=== PATIENT | female | born 1950 | race Caucasian/White ===

== ENCOUNTER 2020-10-31 05:21 | Inpatient (IN) ==
[2020-10-31] MEDS ORDERED: Isovue-370 500 ML BOTTLE IVP ONE (05:50)
[2020-10-31] MEDS ORDERED: 0.9 % Sodium Chloride 1,000 ML IVC ONE (05:57)
[2020-10-31 06:25] LABS: Basophils % 0.5 %; Eosinophils # 0.2 K/mcL (0.0-0.6); Eosinophils % 3.2 %; Hematocrit 45.5 % (35.3-44.9); Hemoglobin 14.8 g/dL (11.5-15.4); Immature Granulocytes % 0.2 % (0-4); Lymphocytes # 1.5 K/mcL (0.6-4.6); Lymphocytes % 22.1 %; Mean Corpuscular HGB Conc 32.5 g/dL (31.6-35.5); Mean Corpuscular Hemoglobin 27.6 pg (28.0-33.3); Mean Corpuscular Volume 84.9 fL (83.0-100.0); Mean Platelet Volume 9.2 fL (9.4-12.4); Monocytes # 0.6 K/mcL (0.0-1.3); Monocytes % 8.4 %; Neutrophils # 4.3 K/mcL (1.6-8.9); Platelet Count 309 K/mcL (140-400); Red Blood Count 5.36 M/mcL (3.82-4.97); Red Cell Distribution Width 12.7 % (11.5-14.5); Segmented Neutrophils % 65.6 %; White Blood Count 6.6 K/mcL (4.3-11.1)
[2020-10-31 06:42] LABS: Alanine Aminotransferase 20 Units/L (7-52); Albumin 4.1 g/dL (3.5-5.7); Albumin/Globulin Ratio 1.4 (1.1-2.2); Alkaline Phosphatase 60 Units/L (34-104); Aspartate Amino Transferase 16 Units/L (13-39); BUN/Creatinine Ratio 12 (6-26); Bilirubin,Total 0.8 mg/dL (0.3-1.0); Blood Urea Nitrogen 40 mg/dL (8-23); Calcium 9.2 mg/dL (8.6-10.3); Carbon Dioxide 22 mEq/L (23-29); Chloride 101 mEq/L (98-107); Glucose 126 mg/dL (70-105); Lipase 32 Units/L (11-82); Osmolality,Calculated 289 (280-300); Potassium 3.3 mEq/L (3.5-5.1); Sodium 134 mEq/L (136-145); Total Protein 7.1 g/dL (6.4-8.9); Troponin I < 0.03 ng/mL (< 0.04); eGFR For African Americans 16 (> 60); eGFR For Non-African Americans 13 (> 60)
[2020-10-31] MEDS ORDERED: Naloxone 0.4 MG/ML INJ IVP PRN (07:40)
[2020-10-31] MEDS ORDERED: Ondansetron 4 MG/2 ML VIAL IVP PRN (07:40)
[2020-10-31] MEDS ORDERED: *HR* Dextrose 50 % in Water (Vial) 50 ML VIAL IVP PRN (08:43)
[2020-10-31] MEDS ORDERED: Dextrose Gel 15 GM/37.5 ML TUBE PO PRN ×2 (08:43)
[2020-10-31] MEDS ORDERED: D5% in Water 1,000 ML IVC PRN (08:43)
[2020-10-31] MEDS: 0.9 % Sodium Chloride 1,000 ML IVC SCH ×2 (09:14→21:06)
[2020-10-31] MEDS: Insulin LISPRO 300 UNITS/3 ML VIAL SQ SCH ×2 (11:25→16:14)
[2020-10-31] MEDS: *HR* Heparin 5,000 UNIT/ML VIAL SQ SCH ×2 (15:28→21:05)
[2020-11-01] MEDS: Insulin LISPRO 300 UNITS/3 ML VIAL SQ SCH ×5 (05:35→21:51)
[2020-11-01 05:47] LABS: Basophils % 0.6 %; Eosinophils # 0.2 K/mcL (0.0-0.6); Hematocrit 40.8 % (35.3-44.9); Immature Granulocytes % 0.2 % (0-4); Lymphocytes # 1.9 K/mcL (0.6-4.6); Lymphocytes % 36.6 %; Mean Corpuscular HGB Conc 32.1 g/dL (31.6-35.5); Mean Corpuscular Hemoglobin 27.6 pg (28.0-33.3); Mean Corpuscular Volume 85.9 fL (83.0-100.0); Mean Platelet Volume 9.3 fL (9.4-12.4); Monocytes # 0.5 K/mcL (0.0-1.3); Monocytes % 8.9 %; Neutrophils # 2.7 K/mcL (1.6-8.9); Platelet Count 258 K/mcL (140-400); Red Blood Count 4.75 M/mcL (3.82-4.97); Red Cell Distribution Width 12.8 % (11.5-14.5); Segmented Neutrophils % 50.7 %; White Blood Count 5.3 K/mcL (4.3-11.1)
[2020-11-01] MEDS: *HR* Heparin 5,000 UNIT/ML VIAL SQ SCH ×3 (05:47→21:53)
[2020-11-01 05:50] LABS: Hemoglobin 13.1 g/dL (11.5-15.4)
[2020-11-01 05:59] LABS: Calcium 8.7 mg/dL (8.6-10.3); Potassium 3.7 mEq/L (3.5-5.1)
[2020-11-01 06:03] LABS: Platelet Estimate Normal (Normal); Reactive Lymphocytes Present (Not Present)
[2020-11-01 08:21] LABS: Magnesium 1.6 mg/dL (1.6-2.6); Phosphorous 2.9 mg/dL (2.7-4.5)
[2020-11-02] MEDS: *HR* Heparin 5,000 UNIT/ML VIAL SQ SCH (06:19)
[2020-11-02 07:16] LABS: Hematocrit 38.3 % (35.3-44.9); Hemoglobin 12.6 g/dL (11.5-15.4); Mean Corpuscular HGB Conc 32.9 g/dL (31.6-35.5); Mean Corpuscular Hemoglobin 28.3 pg (28.0-33.3); Mean Corpuscular Volume 86.1 fL (83.0-100.0); Mean Platelet Volume 9.6 fL (9.4-12.4); Platelet Count 235 K/mcL (140-400); Red Blood Count 4.45 M/mcL (3.82-4.97); Red Cell Distribution Width 12.8 % (11.5-14.5); White Blood Count 6.2 K/mcL (4.3-11.1)
[2020-11-02 07:35] VITALS: BP 164/84
[2020-11-02] MEDS: Insulin LISPRO 300 UNITS/3 ML VIAL SQ SCH (07:35)
[2020-11-02 07:50] LABS: Alanine Aminotransferase 18 Units/L (7-52); Albumin 3.6 g/dL (3.5-5.7); Albumin/Globulin Ratio 1.5 (1.1-2.2); Alkaline Phosphatase 56 Units/L (34-104); Aspartate Amino Transferase 18 Units/L (13-39); BUN/Creatinine Ratio 22 (6-26); Bilirubin,Total 0.5 mg/dL (0.3-1.0); Blood Urea Nitrogen 21 mg/dL (8-23); Calcium 9.1 mg/dL (8.6-10.3); Carbon Dioxide 22 mEq/L (23-29); Chloride 110 mEq/L (98-107); Globulin 2.4 g/dL (2.4-3.5); Glucose 112 mg/dL (70-105); Magnesium 1.6 mg/dL (1.6-2.6); Osmolality,Calculated 294 (280-300); Phosphorous 2.7 mg/dL (2.7-4.5); Potassium 3.8 mEq/L (3.5-5.1); Sodium 140 mEq/L (136-145); eGFR For African Americans > 60 (> 60); eGFR For Non-African Americans 57 (> 60)
[2020-11-02] MEDS ORDERED: Lactobacillus 1 EACH CAP.SPRINK PO SCH (09:00)
[2020-11-02] MEDS ORDERED: amLODIPine 5 MG TABLET PO SCH (09:00)
[2020-11-02] MEDS ORDERED: metroNIDAZOLE 500 MG TABLET PO SCH (09:00)
== END 2020-11-02 14:34 | disposition home or self-care (01) | DRG 683 ==
LOC: 2ANU 05:21 → EMEROOARM 05:21 → SUATTDRO 07:52 → 2ANU 08:20
PROVIDERS: ADMIT Internal Medicine; ATTEND Internal Medicine

== ENCOUNTER 2021-10-24 15:23 | Inpatient (IN) ==
[2021-10-24] MEDS ORDERED: Isovue-370 500 ML BOTTLE IVP ONE (15:37)
[2021-10-24 15:50] LABS: Basophils % 0.1 %; Hemoglobin 13.9 g/dL (11.5-15.4); Immature Granulocytes % 0.9 % (0-4); Lymphocytes # 0.3 K/mcL (0.6-4.6); Lymphocytes % 4.1 %; Mean Corpuscular HGB Conc 33.1 g/dL (31.6-35.5); Mean Corpuscular Hemoglobin 27.8 pg (28.0-33.3); Mean Platelet Volume 9.2 fL (9.4-12.4); Monocytes # 0.2 K/mcL (0.0-1.3); Monocytes % 2.9 %; Neutrophils # 6.9 K/mcL (1.6-8.9); Platelet Count 238 K/mcL (140-400); Red Cell Distribution Width 12.6 % (11.5-14.5); White Blood Count 7.5 K/mcL (4.3-11.1)
[2021-10-24 16:02] LABS: ABG Base Excess -1 mEq/L (-2 to 3); ABG HCO3 23 mEq/L (21-27); ABG Oxygen Saturation 92 % (95-98); ABG PCO2 32 mmHg (35-45); ABG PH 7.45 pH Units (7.32-7.45); ABG PO2 61 mmHg (85-104); ABG TCO2 24 mEq/L (20-26)
[2021-10-24 16:06] LABS: INR 1.1; Prothrombin Time 12.2 Seconds (9.4-12.1)
[2021-10-24 16:08] LABS: Activated Partial Thrombo Time 27.7 Seconds (26.0-36.0)
[2021-10-24 16:10] LABS: Troponin I 0.04 ng/mL (< 0.04)
[2021-10-24 16:24] LABS: Alanine Aminotransferase 28 Units/L (7-52); Albumin 3.7 g/dL (3.5-5.7); Alkaline Phosphatase 48 Units/L (34-104); Aspartate Amino Transferase 37 Units/L (13-39); BUN/Creatinine Ratio 18 (6-26); Bilirubin,Direct 0.3 mg/dL (0.0-0.2); Bilirubin,Indirect 0.8 mg/dL (0.0-1.0); Bilirubin,Total 1.1 mg/dL (0.3-1.0); Blood Urea Nitrogen 17 mg/dL (8-23); Calcium 8.9 mg/dL (8.6-10.3); Carbon Dioxide 22 mEq/L (23-29); Chloride 93 mEq/L (98-107); Globulin 3.8 g/dL (2.4-3.5); Glucose 346 mg/dL (70-105); Osmolality,Calculated 281 (280-300); Potassium 4.1 mEq/L (3.5-5.1); Sodium 128 mEq/L (136-145); Total Protein 7.5 g/dL (6.4-8.9); eGFR For African Americans > 60 (> 60); eGFR For Non-African Americans > 60 (> 60)
[2021-10-24 17:25] LABS: Bilirubin,Urine Negative (Negative); Blood,Urine Moderate (Negative); Clarity,Urine Clear (Clear); Color,Urine Light-Yellow (Yellow); Glucose,Urine (UA) >=1000 mg/dL (Normal); Ketones,Urine 40 mg/dL (Negative); Leukocyte Esterase,Urine Negative (Negative); Mucus,Urine Few per lpf (None-Few); Nitrite,Urine Negative (Negative); Protein,Urine 50 mg/dL (Neg-Trace); RBC,Urine 0-3 per hpf (0-3); Specific Gravity,Urine 1.022 (1.010-1.025); Squamous Epithelial Cell,Urine Few per hpf (None-Few); Urobilinogen,Urine Normal (Normal); WBC,Urine 0-3 per hpf (0-3)
[2021-10-24] MEDS ORDERED: Naloxone 0.4 MG/ML INJ IVP PRN (19:51)
[2021-10-24] MEDS ORDERED: Ondansetron 4 MG/2 ML VIAL IVP PRN (19:51)
[2021-10-24] MEDS ORDERED: Ipratropium 1 PUFF INHALER IH PRN (20:17)
[2021-10-24] MEDS ORDERED: Dextrose Gel 15 GM/37.5 ML TUBE PO PRN ×2 (20:53)
[2021-10-24] MEDS ORDERED: D5% in Water 1,000 ML IVC PRN (20:53)
[2021-10-24] MEDS ORDERED: *HR* Dextrose 50 % in Water (Syg) 50 ML SYRINGE IVP PRN (20:53)
[2021-10-24 21:59] LABS: Adenovirus Not Detected (Not Detect); Coronavirus 229E Not Detected (Not Detect); Coronavirus HKU1 Not Detected (Not Detect); Coronavirus NL63 Not Detected (Not Detect); Coronavirus OC43 Not Detected (Not Detect)
[2021-10-24] MEDS ORDERED: Remdesivir 200 MG in 0.9 % Sodium Chloride 100 ML IVPB ONE (22:00)
[2021-10-24 22:01] LABS: Bordetella Pertussis Not Detected (Not Detect); Chlamydophila pneumoniae Not Detected (Not Detect); Human Metapneumovirus Not Detected (Not Detect); Human Rhinovirus/Enterovirus Not Detected (Not Detect); Influenza A Subtype 2009 H1 Not Detected (Not Detect); Influenza B Not Detected (Not Detect); Mycoplasma pneumoniae Not Detected (Not Detect); Parainfluenza Virus 1 Not Detected (Not Detect); Parainfluenza Virus 2 Not Detected (Not Detect); Parainfluenza Virus 3 Not Detected (Not Detect); Parainfluenza Virus 4 Not Detected (Not Detect); Respiratory Syncytial Virus Not Detected (Not Detect); SARS-CoV-2 DETECTED (Not Detect)
[2021-10-24 22:19] LABS: ABG Base Excess 1 mEq/L (-2 to 3); ABG HCO3 23 mEq/L (21-27); ABG Oxygen Saturation 92 % (95-98); ABG PCO2 30 mmHg (35-45); ABG PH 7.49 pH Units (7.32-7.45); ABG PO2 57 mmHg (85-104); ABG TCO2 24 mEq/L (20-26); Blood Gas Modality CPAP/PS; Blood Gas Pressure Support 16 cm H2O
[2021-10-24] MEDS: Melatonin 3 MG TABLET PO PRN (22:54)
[2021-10-24] MEDS: Insulin DETEMIR 100 UNIT/ML X5UNITS SUBQ SCH (23:17)
[2021-10-25] MEDS ORDERED: *HR* Labetalol 20 MG/4 ML SYRINGE IVP ONE (01:28)
[2021-10-25] MEDS: Insulin LISPRO 300 UNITS/3 ML VIAL SUBQ SCH ×6 (01:36→19:39)
[2021-10-25 02:58] LABS: Hemoglobin 13.4 g/dL (11.5-15.4); Mean Corpuscular HGB Conc 33.5 g/dL (31.6-35.5); Mean Corpuscular Hemoglobin 27.7 pg (28.0-33.3); Mean Corpuscular Volume 82.6 fL (83.0-100.0); Mean Platelet Volume 9.7 fL (9.4-12.4); Platelet Count 224 K/mcL (140-400); Red Blood Count 4.84 M/mcL (3.82-4.97); Red Cell Distribution Width 12.5 % (11.5-14.5); White Blood Count 8.7 K/mcL (4.3-11.1)
[2021-10-25 03:15] LABS: Albumin 3.4 g/dL (3.5-5.7); Albumin/Globulin Ratio 0.9 (1.1-2.2); Bilirubin,Direct 0.3 mg/dL (0.0-0.2); Bilirubin,Indirect 0.6 mg/dL (0.0-1.0); Bilirubin,Total 0.9 mg/dL (0.3-1.0); Globulin 3.6 g/dL (2.4-3.5)
[2021-10-25 03:18] LABS: BUN/Creatinine Ratio 25 (6-26); Blood Urea Nitrogen 17 mg/dL (8-23); C-Reactive Protein 170 mg/L (Less than 10); Carbon Dioxide 24 mEq/L (23-29); Chloride 96 mEq/L (98-107); Glucose 272 mg/dL (70-105); Lactate Dehydrogenase 460 Units/L (140-271); Osmolality,Calculated 283 (280-300); Potassium 4.1 mEq/L (3.5-5.1); Sodium 131 mEq/L (136-145); eGFR For African Americans > 60 (> 60); eGFR For Non-African Americans > 60 (> 60)
[2021-10-25 03:41] LABS: Ferritin > 1500 ng/mL (10-120)
[2021-10-25] MEDS ORDERED: *HR* Enoxaparin 40 MG/0.4 ML SYRINGE SQ SCH (06:00)
[2021-10-25] MEDS ORDERED: Insulin LISPRO 300 UNITS/3 ML VIAL SUBQ SCH (07:30)
[2021-10-25] MEDS: Benzonatate 100 MG CAPSULE PO PRN ×2 (11:54→21:41)
[2021-10-25] MEDS ORDERED: Tocilizumab 80 MG/4 ML MLS IVPB ONE (15:00)
[2021-10-25] MEDS: *HR* Enoxaparin 60 MG/0.6 ML SYRINGE SQ SCH (17:24)
[2021-10-25] MEDS: Insulin DETEMIR 100 UNIT/ML X5UNITS SUBQ SCH (19:40)
[2021-10-25] MEDS ORDERED: TOCILIZUMAB 800 MG in 0.9 % Sodium Chloride 100 ML IVPB ONE (20:00)
[2021-10-25] MEDS: Remdesivir 100 MG in 0.9 % Sodium Chloride 100 ML IVPB SCH (20:36)
[2021-10-25] MEDS: Melatonin 3 MG TABLET PO PRN (21:41)
[2021-10-26] MEDS: Insulin LISPRO 300 UNITS/3 ML VIAL SUBQ SCH ×6 (00:30→20:20)
[2021-10-26 04:50] LABS: Albumin 3.3 g/dL (3.5-5.7); Albumin/Globulin Ratio 0.9 (1.1-2.2); Bilirubin,Direct 0.3 mg/dL (0.0-0.2); Bilirubin,Indirect 0.6 mg/dL (0.0-1.0); Bilirubin,Total 0.9 mg/dL (0.3-1.0); Globulin 3.7 g/dL (2.4-3.5)
[2021-10-26] MEDS: *HR* Enoxaparin 60 MG/0.6 ML SYRINGE SQ SCH ×2 (05:47→17:28)
[2021-10-26] MEDS ORDERED: Acetaminophen 325 MG TABLET PO ONE (06:11)
[2021-10-26] MEDS ORDERED: Naloxone 0.4 MG/ML INJ IVP PRN (06:13)
[2021-10-26] MEDS: Remdesivir 100 MG in 0.9 % Sodium Chloride 100 ML IVPB SCH (20:07)
[2021-10-26] MEDS: Benzonatate 100 MG CAPSULE PO PRN (20:12)
[2021-10-26] MEDS ORDERED: Insulin DETEMIR 100 UNIT/ML X5UNITS SUBQ SCH (21:00)
[2021-10-26] MEDS: Melatonin 3 MG TABLET PO PRN (22:01)
[2021-10-26] MEDS: *HR* LORazepam 2 MG/ML VIAL IVP PRN (22:01)
[2021-10-27] MEDS: Insulin LISPRO 300 UNITS/3 ML VIAL SUBQ SCH ×6 (01:47→20:14)
[2021-10-27] MEDS: Dexmedetomidine HCl 400 MCG/100 ML MLS IVC SCH (03:23)
[2021-10-27 05:26] LABS: Albumin 3.1 g/dL (3.5-5.7); Albumin/Globulin Ratio 0.9 (1.1-2.2); Bilirubin,Direct 0.2 mg/dL (0.0-0.2); Bilirubin,Indirect 0.6 mg/dL (0.0-1.0); Bilirubin,Total 0.8 mg/dL (0.3-1.0); Globulin 3.5 g/dL (2.4-3.5); Total Protein 6.6 g/dL (6.4-8.9)
[2021-10-27 05:38] LABS: BUN/Creatinine Ratio 37 (6-26); Blood Urea Nitrogen 31 mg/dL (8-23); Carbon Dioxide 27 mEq/L (23-29); Chloride 95 mEq/L (98-107); Glucose 184 mg/dL (70-105); Osmolality,Calculated 281 (280-300); Potassium 4.9 mEq/L (3.5-5.1); Sodium 130 mEq/L (136-145); eGFR For African Americans > 60 (> 60); eGFR For Non-African Americans > 60 (> 60)
[2021-10-27] MEDS: *HR* Enoxaparin 60 MG/0.6 ML SYRINGE SQ SCH ×2 (05:42→17:27)
[2021-10-27 06:30] LABS: Basophils % 0.3 %; Hematocrit 41.5 % (35.3-44.9); Hemoglobin 13.8 g/dL (11.5-15.4); Immature Granulocytes % 0.8 % (0-4); Lymphocytes # 0.8 K/mcL (0.6-4.6); Lymphocytes % 9.1 %; Mean Corpuscular HGB Conc 33.3 g/dL (31.6-35.5); Mean Corpuscular Hemoglobin 27.5 pg (28.0-33.3); Mean Corpuscular Volume 82.8 fL (83.0-100.0); Mean Platelet Volume 8.7 fL (9.4-12.4); Monocytes # 0.6 K/mcL (0.0-1.3); Neutrophils # 7.4 K/mcL (1.6-8.9); Platelet Count 337 K/mcL (140-400); Red Blood Count 5.01 M/mcL (3.82-4.97); Red Cell Distribution Width 12.5 % (11.5-14.5); Segmented Neutrophils % 82.8 %; White Blood Count 8.9 K/mcL (4.3-11.1)
[2021-10-27] MEDS: Benzonatate 100 MG CAPSULE PO PRN (09:02)
[2021-10-27] MEDS: Acetaminophen 325 MG TABLET PO PRN (10:11)
[2021-10-27] MEDS: *HR* LORazepam 2 MG/ML VIAL IVP PRN (20:15)
[2021-10-27] MEDS: Insulin DETEMIR 100 UNIT/ML X5UNITS SUBQ SCH (20:15)
[2021-10-27] MEDS: Melatonin 3 MG TABLET PO PRN (20:16)
[2021-10-27] MEDS: Remdesivir 100 MG in 0.9 % Sodium Chloride 100 ML IVPB SCH (22:55)
[2021-10-28] MEDS: Insulin LISPRO 300 UNITS/3 ML VIAL SUBQ SCH ×6 (00:28→20:13)
[2021-10-28] MEDS: *HR* Enoxaparin 60 MG/0.6 ML SYRINGE SQ SCH ×2 (05:46→17:58)
[2021-10-28 06:02] LABS: Albumin 3.4 g/dL (3.5-5.7); Albumin/Globulin Ratio 1.1 (1.1-2.2); Bilirubin,Direct 0.2 mg/dL (0.0-0.2); Bilirubin,Indirect 0.6 mg/dL (0.0-1.0); Bilirubin,Total 0.8 mg/dL (0.3-1.0); Globulin 3.1 g/dL (2.4-3.5); Total Protein 6.5 g/dL (6.4-8.9)
[2021-10-28 06:04] LABS: BUN/Creatinine Ratio 38 (6-26); Blood Urea Nitrogen 33 mg/dL (8-23); Calcium 9.4 mg/dL (8.6-10.3); Carbon Dioxide 26 mEq/L (23-29); Chloride 96 mEq/L (98-107); Glucose 123 mg/dL (70-105); Osmolality,Calculated 281 (280-300); Potassium 4.8 mEq/L (3.5-5.1); Sodium 131 mEq/L (136-145); eGFR For African Americans > 60 (> 60); eGFR For Non-African Americans > 60 (> 60)
[2021-10-28 06:06] LABS: Basophils % 0.3 %; Hematocrit 43.9 % (35.3-44.9); Hemoglobin 14.6 g/dL (11.5-15.4); Immature Granulocytes % 0.6 % (0-4); Lymphocytes # 0.9 K/mcL (0.6-4.6); Lymphocytes % 7.8 %; Mean Corpuscular HGB Conc 33.3 g/dL (31.6-35.5); Mean Corpuscular Hemoglobin 27.8 pg (28.0-33.3); Mean Corpuscular Volume 83.5 fL (83.0-100.0); Mean Platelet Volume 8.9 fL (9.4-12.4); Monocytes # 0.6 K/mcL (0.0-1.3); Monocytes % 5.4 %; Neutrophils # 9.6 K/mcL (1.6-8.9); Platelet Count 429 K/mcL (140-400); Red Blood Count 5.26 M/mcL (3.82-4.97); Red Cell Distribution Width 12.4 % (11.5-14.5); Segmented Neutrophils % 85.9 %; White Blood Count 11.2 K/mcL (4.3-11.1)
[2021-10-28 06:43] LABS: Platelet Estimate Normal (Normal)
[2021-10-28] MEDS: Dexmedetomidine HCl 400 MCG/100 ML MLS IVC SCH ×2 (07:31→15:11)
[2021-10-28] MEDS: Benzonatate 100 MG CAPSULE PO PRN ×2 (09:34→18:00)
[2021-10-28] MEDS: Acetaminophen 325 MG TABLET PO PRN (12:36)
[2021-10-28] MEDS ORDERED: *HR* OxyCODONE/APAP 5/325 TABLET PO PRN (16:24)
[2021-10-28] MEDS: Piperacillin/Tazobactam 3.375 GM in 0.9 % Sodium Chloride Mini Bag 100 ML IVPB SCH (16:59)
[2021-10-28] MEDS: Insulin DETEMIR 100 UNIT/ML X5UNITS SUBQ SCH (20:13)
[2021-10-28] MEDS: *HR* LORazepam 2 MG/ML VIAL IVP PRN (22:53)
[2021-10-28] MEDS: Melatonin 3 MG TABLET PO PRN (22:53)
[2021-10-28] MEDS: Remdesivir 100 MG in 0.9 % Sodium Chloride 100 ML IVPB SCH (22:53)
[2021-10-29] MEDS: Insulin LISPRO 300 UNITS/3 ML VIAL SUBQ SCH ×6 (00:20→21:20)
[2021-10-29] MEDS: Piperacillin/Tazobactam 3.375 GM in 0.9 % Sodium Chloride Mini Bag 100 ML IVPB SCH ×3 (00:20→17:10)
[2021-10-29] MEDS: *HR* Enoxaparin 60 MG/0.6 ML SYRINGE SQ SCH ×2 (06:15→17:12)
[2021-10-29 06:58] LABS: Albumin 3.3 g/dL (3.5-5.7); Albumin/Globulin Ratio 1.1 (1.1-2.2); Bilirubin,Direct 0.2 mg/dL (0.0-0.2); Bilirubin,Indirect 0.6 mg/dL (0.0-1.0); Bilirubin,Total 0.8 mg/dL (0.3-1.0); Total Protein 6.3 g/dL (6.4-8.9)
[2021-10-29 06:59] LABS: BUN/Creatinine Ratio 34 (6-26); Blood Urea Nitrogen 29 mg/dL (8-23); Carbon Dioxide 25 mEq/L (23-29); Chloride 100 mEq/L (98-107); Glucose 116 mg/dL (70-105); Osmolality,Calculated 283 (280-300); Potassium 4.6 mEq/L (3.5-5.1); Sodium 133 mEq/L (136-145); eGFR For African Americans > 60 (> 60); eGFR For Non-African Americans > 60 (> 60)
[2021-10-29 07:11] LABS: Phosphorous 4.6 mg/dL (2.7-4.5)
[2021-10-29 07:18] LABS: Basophils % 0.2 %; Eosinophils # 0.1 K/mcL (0.0-0.6); Eosinophils % 0.4 %; Hematocrit 45.4 % (35.3-44.9); Hemoglobin 15.1 g/dL (11.5-15.4); Immature Granulocytes % 0.4 % (0-4); Lymphocytes # 0.7 K/mcL (0.6-4.6); Lymphocytes % 6.4 %; Mean Corpuscular HGB Conc 33.3 g/dL (31.6-35.5); Mean Corpuscular Hemoglobin 27.7 pg (28.0-33.3); Mean Corpuscular Volume 83.2 fL (83.0-100.0); Mean Platelet Volume 8.7 fL (9.4-12.4); Monocytes # 0.3 K/mcL (0.0-1.3); Monocytes % 2.5 %; Neutrophils # 10.3 K/mcL (1.6-8.9); Platelet Count 388 K/mcL (140-400); Red Blood Count 5.46 M/mcL (3.82-4.97); Red Cell Distribution Width 12.5 % (11.5-14.5); Segmented Neutrophils % 90.1 %; White Blood Count 11.5 K/mcL (4.3-11.1)
[2021-10-29 07:26] LABS: INR 1.1; Prothrombin Time 12.6 Seconds (9.4-12.1)
[2021-10-29] MEDS: Dexmedetomidine HCl 400 MCG/100 ML MLS IVC SCH ×3 (08:44→17:55)
[2021-10-29] MEDS ORDERED: Lidocaine -MPF 1% 5 ML AMPUL INFILT ONE (09:51)
[2021-10-29] MEDS ORDERED: *HR* FentaNYL (PF) 100 MCG/2 ML VIAL IVP ONE (10:55)
[2021-10-29] MEDS ORDERED: *HR* FentaNYL (PF) 100 MCG/2 ML VIAL ONE (10:56)
[2021-10-29] MEDS ORDERED: Norepinephrine 4 MG/254 ML IV.SOLN IVC ONE (10:57)
[2021-10-29] MEDS ORDERED: FentaNYL (PF) 1,000 MCG/100 ML IV.SOLN ONE (10:57)
[2021-10-29] MEDS: Cisatracurium 200 MG in 0.9 % Sodium Chloride 180 ML IVC SCH ×2 (11:41→22:14)
[2021-10-29] MEDS: FentaNYL (PF) 1,000 MCG/100 ML IV.SOLN IVC SCH ×3 (11:41→21:23)
[2021-10-29] MEDS: Norepinephrine 4 MG/254 ML IV.SOLN IVC SCH ×2 (11:42→15:20)
[2021-10-29 12:10] LABS: ABG Base Excess -3 mEq/L (-2 to 3); ABG HCO3 27 mEq/L (21-27); ABG Oxygen Saturation 93 % (95-98); ABG PCO2 64 mmHg (35-45); ABG PH 7.23 pH Units (7.32-7.45); ABG PO2 81 mmHg (85-104); ABG TCO2 29 mEq/L (20-26); Blood Gas Modality VC; Blood Gas VT 400 cc
[2021-10-29 14:18] LABS: ABG Base Excess -4 mEq/L (-2 to 3); ABG HCO3 26 mEq/L (21-27); ABG Oxygen Saturation 86 % (95-98); ABG PCO2 72 mmHg (35-45); ABG PH 7.17 pH Units (7.32-7.45); ABG PO2 66 mmHg (85-104); ABG TCO2 29 mEq/L (20-26); Blood Gas Modality ASSIST CONTROL; Blood Gas VT 400 cc
[2021-10-29] MEDS ORDERED: 0.9 % Sodium Chloride 1,000 ML ONE (16:16)
[2021-10-29] MEDS ORDERED: Artificial Tears SOLN 15 ML BOTTLE BOTH EYES PRN (16:21)
[2021-10-29] MEDS: Pantoprazole 40 MG VIAL IVP SCH (17:15)
[2021-10-29] MEDS ORDERED: *HR* Etomidate 20 MG/10 ML AMPUL IVP ONE (18:11)
[2021-10-29] MEDS ORDERED: *HR* Succinylcholine 200 MG/10 ML VIAL IVP ONE (18:11)
[2021-10-29] MEDS ORDERED: *HR* Midazolam HCl 2 MG/2 ML VIAL IVP ONE (18:11)
[2021-10-29] MEDS ORDERED: *HR* Propofol 200 MG/20 ML VIAL IVP ONE (18:11)
[2021-10-29] MEDS ORDERED: *HR* Midazolam HCl 5 MG/5 ML VIAL IVP ONE (18:11)
[2021-10-29 21:00] LABS: ABG Base Excess 0 mEq/L (-2 to 3); ABG HCO3 30 mEq/L (21-27); ABG Oxygen Saturation 100 % (95-98); ABG PCO2 73 mmHg (35-45); ABG PH 7.23 pH Units (7.32-7.45); ABG PO2 252 mmHg (85-104); ABG TCO2 32 mEq/L (20-26); Blood Gas Modality ASSIST CONTROL; Blood Gas VT 400 cc
[2021-10-29] MEDS: Artificial Tears SOLN 15 ML BOTTLE BOTH EYES SCH (21:19)
[2021-10-29] MEDS: Chlorhexidine Rinse 15 ML MOUTHWASH MM SCH (21:21)
[2021-10-29] MEDS: Insulin DETEMIR 100 UNIT/ML X5UNITS SUBQ SCH (21:22)
[2021-10-30] MEDS: Piperacillin/Tazobactam 3.375 GM in 0.9 % Sodium Chloride Mini Bag 100 ML IVPB SCH ×4 (00:25→23:47)
[2021-10-30] MEDS: Artificial Tears SOLN 15 ML BOTTLE BOTH EYES SCH ×7 (00:27→23:46)
[2021-10-30] MEDS: Insulin LISPRO 300 UNITS/3 ML VIAL SUBQ SCH ×7 (00:37→23:46)
[2021-10-30] MEDS: Dexmedetomidine HCl 400 MCG/100 ML MLS IVC SCH (02:54)
[2021-10-30 03:53] LABS: Hematocrit 43.6 % (35.3-44.9); Hemoglobin 14.3 g/dL (11.5-15.4); Mean Corpuscular HGB Conc 32.8 g/dL (31.6-35.5); Mean Corpuscular Hemoglobin 28.3 pg (28.0-33.3); Mean Corpuscular Volume 86.2 fL (83.0-100.0); Mean Platelet Volume 8.8 fL (9.4-12.4); Platelet Count 400 K/mcL (140-400); Red Blood Count 5.06 M/mcL (3.82-4.97); Red Cell Distribution Width 12.6 % (11.5-14.5)
[2021-10-30 03:57] LABS: ABG Base Excess 1 mEq/L (-2 to 3); ABG HCO3 32 mEq/L (21-27); ABG Oxygen Saturation 100 % (95-98); ABG PCO2 74 mmHg (35-45); ABG PH 7.24 pH Units (7.32-7.45); ABG PO2 246 mmHg (85-104); ABG TCO2 34 mEq/L (20-26); Blood Gas VT 400 cc
[2021-10-30 04:02] LABS: White Blood Count 20.7 K/mcL (4.3-11.1)
[2021-10-30 04:06] LABS: Calcium 8.3 mg/dL (8.6-10.3); Magnesium 2.3 mg/dL (1.6-2.6); Phosphorous 6.2 mg/dL (2.7-4.5); Potassium 5.3 mEq/L (3.5-5.1)
[2021-10-30] MEDS: FentaNYL (PF) 1,000 MCG/100 ML IV.SOLN IVC SCH ×4 (04:45→22:09)
[2021-10-30] MEDS: *HR* Enoxaparin 60 MG/0.6 ML SYRINGE SQ SCH ×2 (06:00→16:57)
[2021-10-30] MEDS: Chlorhexidine Rinse 15 ML MOUTHWASH MM SCH ×2 (07:50→20:04)
[2021-10-30] MEDS: Pantoprazole 40 MG VIAL IVP SCH (07:50)
[2021-10-30] MEDS: Cisatracurium 200 MG in 0.9 % Sodium Chloride 180 ML IVC SCH ×2 (08:46→20:00)
[2021-10-30] MEDS: Norepinephrine 4 MG/254 ML IV.SOLN IVC SCH ×2 (13:20→21:09)
[2021-10-30] MEDS: Insulin DETEMIR 100 UNIT/ML X5UNITS SUBQ SCH (20:07)
[2021-10-31] MEDS: Norepinephrine 4 MG/254 ML IV.SOLN IVC SCH ×3 (02:30→16:40)
[2021-10-31] MEDS: FentaNYL (PF) 1,000 MCG/100 ML IV.SOLN IVC SCH ×4 (03:09→19:11)
[2021-10-31] MEDS: Artificial Tears SOLN 15 ML BOTTLE BOTH EYES SCH ×5 (03:38→19:59)
[2021-10-31] MEDS: Insulin LISPRO 300 UNITS/3 ML VIAL SUBQ SCH ×5 (03:44→19:59)
[2021-10-31 04:29] LABS: ABG Base Excess -3 mEq/L (-2 to 3); ABG HCO3 27 mEq/L (21-27); ABG Oxygen Saturation 99 % (95-98); ABG PCO2 66 mmHg (35-45); ABG PH 7.22 pH Units (7.32-7.45); ABG PO2 163 mmHg (85-104); ABG TCO2 29 mEq/L (20-26); Blood Gas VT 400 cc
[2021-10-31] MEDS: *HR* Enoxaparin 60 MG/0.6 ML SYRINGE SQ SCH ×2 (05:19→17:07)
[2021-10-31] MEDS: Cisatracurium 200 MG in 0.9 % Sodium Chloride 180 ML IVC SCH ×2 (07:28→18:22)
[2021-10-31] MEDS: Piperacillin/Tazobactam 3.375 GM in 0.9 % Sodium Chloride Mini Bag 100 ML IVPB SCH ×2 (07:37→15:46)
[2021-10-31] MEDS: Dexamethasone Sodium Phos/PF 10 MG/ML VIAL IVP SCH (07:40)
[2021-10-31] MEDS: Pantoprazole 40 MG VIAL IVP SCH (07:40)
[2021-10-31] MEDS: Chlorhexidine Rinse 15 ML MOUTHWASH MM SCH ×2 (07:40→20:02)
[2021-10-31 14:03] LABS: Calcium 8.1 mg/dL (8.6-10.3); Potassium 5.1 mEq/L (3.5-5.1)
[2021-10-31] MEDS: Insulin DETEMIR 100 UNIT/ML X5UNITS SUBQ SCH (20:02)
[2021-11-01] MEDS: Norepinephrine 4 MG/254 ML IV.SOLN IVC SCH ×2 (00:11→10:58)
[2021-11-01] MEDS: Insulin LISPRO 300 UNITS/3 ML VIAL SUBQ SCH ×6 (00:27→20:13)
[2021-11-01] MEDS: Artificial Tears SOLN 15 ML BOTTLE BOTH EYES SCH ×6 (00:27→20:12)
[2021-11-01] MEDS: Piperacillin/Tazobactam 3.375 GM in 0.9 % Sodium Chloride Mini Bag 100 ML IVPB SCH ×3 (00:29→15:12)
[2021-11-01] MEDS: FentaNYL (PF) 1,000 MCG/100 ML IV.SOLN IVC SCH ×5 (00:43→21:45)
[2021-11-01] MEDS: *HR* Enoxaparin 60 MG/0.6 ML SYRINGE SQ SCH ×2 (04:10→17:10)
[2021-11-01 04:27] LABS: ABG Base Excess -2 mEq/L (-2 to 3); ABG HCO3 28 mEq/L (21-27); ABG Oxygen Saturation 99 % (95-98); ABG PCO2 66 mmHg (35-45); ABG PH 7.23 pH Units (7.32-7.45); ABG PO2 149 mmHg (85-104); ABG TCO2 30 mEq/L (20-26); Blood Gas VT 400 cc
[2021-11-01 05:02] LABS: VBG Ionized Calcium 1.22 mmol/L (1.15-1.35)
[2021-11-01 05:10] LABS: Hemoglobin 14.1 g/dL (11.5-15.4); Mean Corpuscular Hemoglobin 28.3 pg (28.0-33.3); Mean Corpuscular Volume 88.2 fL (83.0-100.0); Mean Platelet Volume 9.1 fL (9.4-12.4); Platelet Count 377 K/mcL (140-400); Red Blood Count 4.99 M/mcL (3.82-4.97); Red Cell Distribution Width 13.2 % (11.5-14.5); White Blood Count 18.4 K/mcL (4.3-11.1)
[2021-11-01 05:30] LABS: Albumin 2.6 g/dL (3.5-5.7); Bilirubin,Total 0.6 mg/dL (0.3-1.0); Calcium 8.2 mg/dL (8.6-10.3); Globulin 2.5 g/dL (2.4-3.5); Magnesium 2.6 mg/dL (1.6-2.6); Phosphorous 4.4 mg/dL (2.7-4.5); Potassium 5.1 mEq/L (3.5-5.1); Total Protein 5.1 g/dL (6.4-8.9)
[2021-11-01] MEDS: Cisatracurium 200 MG in 0.9 % Sodium Chloride 180 ML IVC SCH ×2 (06:15→17:30)
[2021-11-01] MEDS: Chlorhexidine Rinse 15 ML MOUTHWASH MM SCH ×2 (07:48→20:12)
[2021-11-01] MEDS: Pantoprazole 40 MG VIAL IVP SCH (07:48)
[2021-11-01] MEDS: Dexamethasone Sodium Phos/PF 10 MG/ML VIAL IVP SCH (07:49)
[2021-11-01] MEDS: Dexmedetomidine HCl 400 MCG/100 ML MLS IVC SCH ×3 (08:09→21:44)
[2021-11-01] MEDS: Insulin DETEMIR 100 UNIT/ML X5UNITS SUBQ SCH (20:12)
[2021-11-02] MEDS: Artificial Tears SOLN 15 ML BOTTLE BOTH EYES SCH ×7 (00:01→23:57)
[2021-11-02] MEDS: Insulin LISPRO 300 UNITS/3 ML VIAL SUBQ SCH ×7 (00:02→23:57)
[2021-11-02] MEDS: Piperacillin/Tazobactam 3.375 GM in 0.9 % Sodium Chloride Mini Bag 100 ML IVPB SCH ×4 (00:03→23:59)
[2021-11-02] MEDS: Norepinephrine 4 MG/254 ML IV.SOLN IVC SCH (01:30)
[2021-11-02] MEDS: FentaNYL (PF) 1,000 MCG/100 ML IV.SOLN IVC SCH ×2 (03:00→08:37)
[2021-11-02 03:46] LABS: ABG Base Excess 1 mEq/L (-2 to 3); ABG HCO3 29 mEq/L (21-27); ABG Oxygen Saturation 85 % (95-98); ABG PCO2 61 mmHg (35-45); ABG PH 7.29 pH Units (7.32-7.45); ABG PO2 57 mmHg (85-104); ABG TCO2 31 mEq/L (20-26); Blood Gas VT 400 cc
[2021-11-02] MEDS: *HR* Enoxaparin 60 MG/0.6 ML SYRINGE SQ SCH ×2 (04:41→17:21)
[2021-11-02] MEDS: Cisatracurium 200 MG in 0.9 % Sodium Chloride 180 ML IVC SCH ×2 (05:02→15:34)
[2021-11-02 05:16] LABS: Hematocrit 28.1 % (35.3-44.9); Hemoglobin 8.9 g/dL (11.5-15.4); Mean Corpuscular HGB Conc 31.7 g/dL (31.6-35.5); Mean Corpuscular Hemoglobin 28.2 pg (28.0-33.3); Mean Corpuscular Volume 88.9 fL (83.0-100.0); Mean Platelet Volume 8.8 fL (9.4-12.4); Platelet Count 206 K/mcL (140-400); Red Blood Count 3.16 M/mcL (3.82-4.97); Red Cell Distribution Width 13.1 % (11.5-14.5); White Blood Count 9.3 K/mcL (4.3-11.1)
[2021-11-02 05:26] LABS: BUN/Creatinine Ratio 61 (6-26); Blood Urea Nitrogen 54 mg/dL (8-23); Calcium 6.8 mg/dL (8.6-10.3); Carbon Dioxide 24 mEq/L (23-29); Chloride 114 mEq/L (98-107); Glucose 166 mg/dL (70-105); Osmolality,Calculated 313 (280-300); Potassium 4.2 mEq/L (3.5-5.1); Sodium 142 mEq/L (136-145); eGFR For African Americans > 60 (> 60); eGFR For Non-African Americans > 60 (> 60)
[2021-11-02] MEDS: Pantoprazole 40 MG VIAL IVP SCH (08:40)
[2021-11-02] MEDS: Dexamethasone Sodium Phos/PF 10 MG/ML VIAL IVP SCH (08:40)
[2021-11-02] MEDS: Chlorhexidine Rinse 15 ML MOUTHWASH MM SCH ×2 (08:40→20:32)
[2021-11-02] MEDS: Cholecalciferol (D-3) 1,000 UNIT (25MCG) TABLET PO SCH (08:40)
[2021-11-02] MEDS: Dexmedetomidine HCl 400 MCG/100 ML MLS IVC SCH ×2 (10:10→22:30)
[2021-11-02 11:39] LABS: Hematocrit 42.4 % (35.3-44.9)
[2021-11-02 11:41] LABS: Hemoglobin 13.7 g/dL (11.5-15.4)
[2021-11-02] MEDS: Docusate Oral Soln 100 MG/10 ML UDC GTUBE SCH ×2 (13:21→20:32)
[2021-11-02] MEDS: FentaNYL (PF) 2,500 MCG/50 ML IV.SOLN IVC SCH ×2 (13:55→23:55)
[2021-11-02] MEDS: Insulin DETEMIR 100 UNIT/ML X5UNITS SUBQ SCH (20:32)
[2021-11-03] MEDS: Cisatracurium 200 MG in 0.9 % Sodium Chloride 180 ML IVC SCH ×3 (03:00→23:35)
[2021-11-03] MEDS: Artificial Tears SOLN 15 ML BOTTLE BOTH EYES SCH ×5 (03:19→20:11)
[2021-11-03] MEDS: Insulin LISPRO 300 UNITS/3 ML VIAL SUBQ SCH ×6 (03:19→23:42)
[2021-11-03] MEDS: *HR* Enoxaparin 60 MG/0.6 ML SYRINGE SQ SCH ×2 (03:21→18:15)
[2021-11-03 04:08] LABS: Hematocrit 45.3 % (35.3-44.9); Mean Corpuscular HGB Conc 30.9 g/dL (31.6-35.5); Mean Corpuscular Hemoglobin 27.8 pg (28.0-33.3); Mean Corpuscular Volume 89.9 fL (83.0-100.0); Mean Platelet Volume 9.3 fL (9.4-12.4); Platelet Count 268 K/mcL (140-400); Red Blood Count 5.04 M/mcL (3.82-4.97); Red Cell Distribution Width 13.3 % (11.5-14.5); White Blood Count 12.5 K/mcL (4.3-11.1)
[2021-11-03 04:45] LABS: ABG Base Excess 1 mEq/L (-2 to 3); ABG HCO3 34 mEq/L (21-27); ABG Oxygen Saturation 82 % (95-98); ABG PCO2 107 mmHg (35-45); ABG PH 7.11 pH Units (7.32-7.45); ABG PO2 65 mmHg (85-104); ABG TCO2 38 mEq/L (20-26); Blood Gas VT 400 cc
[2021-11-03 04:46] LABS: BUN/Creatinine Ratio 62 (6-26); Blood Urea Nitrogen 62 mg/dL (8-23); Calcium 8.7 mg/dL (8.6-10.3); Carbon Dioxide 30 mEq/L (23-29); Chloride 107 mEq/L (98-107); Glucose 183 mg/dL (70-105); Osmolality,Calculated 312 (280-300); Potassium 5.3 mEq/L (3.5-5.1); Sodium 140 mEq/L (136-145); eGFR For African Americans > 60 (> 60); eGFR For Non-African Americans 54 (> 60)
[2021-11-03] MEDS: Dexmedetomidine HCl 400 MCG/100 ML MLS IVC SCH ×2 (06:40→18:46)
[2021-11-03] MEDS: Dexamethasone Sodium Phos/PF 10 MG/ML VIAL IVP SCH (08:52)
[2021-11-03] MEDS: Pantoprazole 40 MG VIAL IVP SCH (08:53)
[2021-11-03] MEDS: Chlorhexidine Rinse 15 ML MOUTHWASH MM SCH ×2 (08:53→20:14)
[2021-11-03] MEDS: Docusate Oral Soln 100 MG/10 ML UDC GTUBE SCH ×2 (08:53→20:13)
[2021-11-03] MEDS: Norepinephrine 4 MG/254 ML IV.SOLN IVC SCH (08:54)
[2021-11-03] MEDS: Cholecalciferol (D-3) 1,000 UNIT (25MCG) TABLET PO SCH (08:56)
[2021-11-03] MEDS: Piperacillin/Tazobactam 3.375 GM in 0.9 % Sodium Chloride Mini Bag 100 ML IVPB SCH ×3 (10:00→23:40)
[2021-11-03] MEDS: FentaNYL (PF) 2,500 MCG/50 ML IV.SOLN IVC SCH ×2 (11:04→23:38)
[2021-11-03 15:14] LABS: ABG Base Excess 1 mEq/L (-2 to 3); ABG HCO3 30 mEq/L (21-27); ABG Oxygen Saturation 79 % (95-98); ABG PCO2 70 mmHg (35-45); ABG PH 7.24 pH Units (7.32-7.45); ABG PO2 52 mmHg (85-104); ABG TCO2 32 mEq/L (20-26); Blood Gas Modality AF; Blood Gas VT 400 cc
[2021-11-03] MEDS ORDERED: Furosemide 20 MG/2 ML VIAL IVP ONE (15:35)
[2021-11-03] MEDS: Insulin DETEMIR 100 UNIT/ML X5UNITS SUBQ SCH (20:13)
[2021-11-04] MEDS: Dexmedetomidine HCl 400 MCG/100 ML MLS IVC SCH ×2 (00:12→05:27)
[2021-11-04] MEDS: Artificial Tears SOLN 15 ML BOTTLE BOTH EYES SCH ×3 (00:49→09:14)
[2021-11-04 03:06] LABS: ABG Base Excess 3 mEq/L (-2 to 3); ABG HCO3 32 mEq/L (21-27); ABG Oxygen Saturation 67 % (95-98); ABG PCO2 72 mmHg (35-45); ABG PH 7.26 pH Units (7.32-7.45); ABG PO2 42 mmHg (85-104); ABG TCO2 34 mEq/L (20-26); Blood Gas Modality AF; Blood Gas VT 400 cc
[2021-11-04] MEDS: Insulin LISPRO 300 UNITS/3 ML VIAL SUBQ SCH ×2 (03:39→09:14)
[2021-11-04 04:15] LABS: Hematocrit 42.1 % (35.3-44.9); Mean Corpuscular HGB Conc 30.9 g/dL (31.6-35.5); Mean Corpuscular Volume 90.5 fL (83.0-100.0); Mean Platelet Volume 9.8 fL (9.4-12.4); Platelet Count 261 K/mcL (140-400); Red Blood Count 4.65 M/mcL (3.82-4.97); Red Cell Distribution Width 13.2 % (11.5-14.5); White Blood Count 12.8 K/mcL (4.3-11.1)
[2021-11-04 04:28] LABS: Calcium 8.6 mg/dL (8.6-10.3); Potassium 4.9 mEq/L (3.5-5.1)
[2021-11-04] MEDS: *HR* Enoxaparin 60 MG/0.6 ML SYRINGE SQ SCH (05:07)
[2021-11-04] MEDS: Norepinephrine 4 MG/254 ML IV.SOLN IVC SCH (05:37)
[2021-11-04] MEDS ORDERED: *HR* LORazepam 2 MG/ML VIAL IVP PRN (08:29)
[2021-11-04 08:54] VITALS: TEMP 100.8
[2021-11-04 09:14] VITALS: BP 70/43; PULSE 91; O2SAT 91
[2021-11-04] MEDS: Piperacillin/Tazobactam 3.375 GM in 0.9 % Sodium Chloride Mini Bag 100 ML IVPB SCH (09:14)
[2021-11-04] MEDS: Dexamethasone Sodium Phos/PF 10 MG/ML VIAL IVP SCH (09:15)
[2021-11-04] MEDS: Chlorhexidine Rinse 15 ML MOUTHWASH MM SCH (09:15)
[2021-11-04] MEDS: Cholecalciferol (D-3) 1,000 UNIT (25MCG) TABLET PO SCH (09:15)
[2021-11-04] MEDS: Pantoprazole 40 MG VIAL IVP SCH (09:15)
[2021-11-04] MEDS: Docusate Oral Soln 100 MG/10 ML UDC GTUBE SCH (09:15)
== END 2021-11-04 09:49 | disposition expired | DRG 207 ==
LOC: EMEROOARM 15:23 → 2NNU 15:23 → SUATTDRO 20:30 → 2NNU 21:10 → ICNU 10-29 13:25
PROVIDERS: ADMIT Student in an Organized Health Care Education/Training Program; ATTEND Internal Medicine